=== PATIENT | male | born 1970 | race Caucasian/White ===

== ENCOUNTER 2017-02-10 13:59 | Inpatient (IN) | payer OTHER ==
[~2017-02-10] VITALS: Ht 175.3 cm; Wt 66.5 kg
[~2017-02-10 13:59] MED LIST: HYDR-906 PO
[2017-02-10] MEDS ORDERED: FAMOTIDINE 20 MG TAB PO STA (14:24)
[2017-02-10] MEDS ORDERED: SOD CHLORIDE 0.9% 1,000 ML IV STA ×2 (14:24→15:59)
[2017-02-10] MEDS: ONDANSETRON 4 MG INJ IV STA ×2 (14:58→15:07)
[2017-02-10] MEDS ORDERED: morphine 4 MG/ML VIAL IV STA (15:12)
[2017-02-10 15:14] LABS: ADD SCAN DIFF NO
[2017-02-10 15:16] LABS: BASOPHIL # 0.1 10^3/ul (0.0-0.1); BASOPHILS % 0.6 % (0.0-2.0); EOSINOPHILS # 0.1 10^3/ul (0.0-0.5); EOSINOPHILS % 0.5 % (0.0-7.0); HEMATOCRIT 43.7 % (42.0-52.0); HEMOGLOBIN 15.3 g/dl (14.0-18.0); LYMPHOCYTES # 1.3 10^3/ul (0.8-2.9); LYMPHOCYTES % 12.4 % (15.0-51.0); MEAN CORPUSCULAR VOLUME 94.2 fl (82.0-101.0); MEAN PLATELET VOLUME 10.6 fl (7.4-10.4); MONOCYTE # 0.7 10^3/ul (0.3-0.9); MONOCYTES % 6.2 % (0.0-11.0); NEUTROPHIL # 8.5 10^3/ul (1.6-7.5); NEUTROPHILS % 80.1 % (39.0-77.0); PLATELET COUNT 258 10^3/UL (140-415); RED BLOOD COUNT 4.64 10^6/ul (4.70-6.10); RED CELL DISTRIBUTION WIDTH 12.2 % (11.5-14.5); WHITE BLOOD COUNT 10.6 10^3/ul (4.8-10.8)
[2017-02-10 15:37] LABS: ALBUMIN 5.5 g/dl (3.3-4.9); ALBUMIN/GLOBULIN RATIO 1.34; CALCIUM 10.5 mg/dl (8.4-10.2); CREATININE 0.91 mg/dl (0.61-1.24); TOTAL PROTEIN 9.6 g/dl (6.1-8.1)
[2017-02-10 15:39] LABS: ADD UMIC YES; UR ASCORBIC ACID 40 mg/dL (NEGATIVE); UR BILIRUBIN (Dip) NEGATIVE (NEGATIVE); UR BLOOD (Dip) NEGATIVE (NEGATIVE); UR CLARITY SLIGHTLY CLOUDY (CLEAR); UR COLOR AMBER (YELLOW); UR GLUCOSE (Dip) NEGATIVE (NEGATIVE); UR KETONES (Dip) TRACE mg/dL (NEGATIVE); UR LEUKOCYTE ESTERASE (Dip) NEGATIVE Leu/ul (NEGATIVE); UR MUCUS MANY /HPF (NONE SEEN); UR NITRITE (Dip) NEGATIVE (NEGATIVE); UR RBC 0 /HPF (0-5); UR SPECIFIC GRAVITY (Dip) 1.028 (1.003-1.030); UR TOTAL PROTEIN (Dip) 2+ mg/dl (NEGATIVE); UR UROBILINOGEN (Dip) NEGATIVE (NEGATIVE)
--- NOTE | 2017-02-10 15:42 | ERD ---
ER Documentation Chief Complaint Date/Time DATE: 02/10/17 TIME: 15:35 Chief Complaint abdominal pain since yesterday HPI 46 y/o male presents with 8/10, sharp generalized abdominal pain radiating to his back beginning yesterday morning. He states he has a history of pancreatitis and that this pain feels similar to his previous episode. He had 10 drinks the day before the pain began and states he drinks about 10 drinks a day regularly for the past 15 years. He denies any nausea, vomiting, diarrhea, constipation, dysuria, hematuria, fever, SOB or CP. ROS All systems reviewed and are negative except as per history of present illness. Medications Home Meds Active Scripts Hydrocodone/Acetaminophen (Maribel 5-325 Tablet) 1 Each Tablet, 1 TAB PO Q6H Y for PAIN, #15 TAB Prov:PANCHO HICKMAN PA-C 05/07/16 Allergies Allergies: Coded Allergies: No Known Allergy (Unverified , 02/10/17) PMhx/Soc Medical and Surgical Hx: pt denies Medical Hx, pt denies Surgical Hx History of Surgery: No Anesthesia Reaction: No Hx Neurological Disorder: No Hx Respiratory Disorders: No Hx Cardiac Disorders: No Hx Psychiatric Problems: No Hx Miscellaneous Medical Probl: No Hx Alcohol Use: Yes (socially) Hx Substance Use: No Hx Tobacco Use: No Smoking Status: Never smoker Physical Exam Vitals Vital Signs Date Time Temp Pulse Resp B/P Pulse Ox O2 Delivery O2 Flow Rate FiO2 02/10/17 14:03 98.8 92 18 132/87 98 Physical Exam GENERAL: well-developed/well-nourished, in no apparent distress, non-toxic appearing HENT: NC/AT, moist mucous membranes EYES: Conjunctiva normal NECK: Supple, no lymphadenopathy PULM: CTA bilaterally, no rales, rhonchi, or wheezing heard CV: Normal S1S2, RRR, good capillary refill GI: Soft, non-distended, tender to palpation in all quadrants Normal bowel sounds, no masses or organomegaly felt on exam No gross peritonitis, no bruits Negative Rovsing, negative Howard, negative McBurney's point, Negative CVAT BACK: No masses EXT: No clubbing, cyanosis, or edema NEURO: Alert and Orientated SKIN: Intact, normal turgor PSYCH: Normal mood and mentation Result Diagram: 02/10/17 1455 02/10/17 1455 Results 24 hrs Laboratory Tests Test 02/10/17 14:55 White Blood Count 10.610^3/ul Red Blood Count 4.6410^6/ul Hemoglobin 15.3g/dl Hematocrit 43.7% Mean Corpuscular Volume 94.2fl Mean Corpuscular Hemoglobin 33.0pg Mean Corpuscular Hemoglobin Concent 35.0g/dl Red Cell Distribution Width 12.2% Platelet Count 64332^3/UL Mean Platelet Volume 10.6fl Neutrophils % 80.1% Lymphocytes % 12.4% Monocytes % 6.2% Eosinophils % 0.5% Basophils % 0.6% Nucleated Red Blood Cells % 0.0/100WBC Neutrophils # 8.510^3/ul Lymphocytes # 1.310^3/ul Monocytes # 0.710^3/ul Eosinophils # 0.110^3/ul Basophils # 0.110^3/ul Nucleated Red Blood Cells # 0.010^3/ul Urine Color JACINDA Urine Clarity SLIGHTLY CLOUDY Urine pH 5.0 Urine Specific [place] 1.028 Urine Ketones TRACEmg/dL Urine Nitrite NEGATIVEmg/dL Urine Bilirubin NEGATIVEmg/dL Urine Urobilinogen NEGATIVEmg/dL Urine Leukocyte Esterase NEGATIVELeu/ul Urine Microscopic RBC 0/HPF Urine Microscopic WBC 2/HPF Urine Mucus MANY/HPF Urine Hemoglobin NEGATIVEmg/dL Urine Glucose NEGATIVEmg/dL Urine Total Protein 2+mg/dl Sodium Level 137mmol/L Potassium Level 4.0mmol/L Chloride Level 101mmol/L Carbon Dioxide Level 23mmol/L Anion Gap 17 Blood Urea Nitrogen 20mg/dl Creatinine 0.91mg/dl Glucose Level 127mg/dl Calcium Level 10.5mg/dl Total Bilirubin 1.0mg/dl Direct Bilirubin 0.00mg/dl Indirect Bilirubin 1.0mg/dl Aspartate Amino Transf (AST/SGOT) 52IU/L Alanine Aminotransferase (ALT/SGPT) 51IU/L Alkaline Phosphatase 67IU/L Total Protein 9.6g/dl Albumin 5.5g/dl Globulin 4.10g/dl Albumin/Globulin Ratio 1.34 Lipase 1736U/L Current Medications Medications (Trade) Dose Ordered Sig/Teresa Route PRN Reason Start Time Stop Time Status Last Admin Dose Admin Sodium Chloride (NS) 1,000 ml @ 1,000 mls/hr Q1H STAT IV 02/10/17 14:24 7/11/17 15:23 DC 02/10/17 14:58 Ondansetron HCl (Zofran Inj) 4 mg ONCE STAT IV 02/10/17 14:24 02/10/17 14:26 DC Famotidine (Pepcid) 20 mg ONCE STAT PO 02/10/17 14:24 02/10/17 14:26 DC 02/10/17 14:58 Morphine Sulfate 4 mg 4 mg ONCE STAT IV 02/10/17 15:12 02/10/17 15:13 DC 02/10/17 15:22 Sodium Chloride (NS) 1,000 ml @ 1,000 mls/hr Q1H STAT IV 02/10/17 15:59 02/10/17 16:58 DC 02/10/17 16:15 Ketorolac Tromethamine (Toradol) 30 mg ONCE STAT IV 02/10/17 16:52 02/10/17 16:53 DC 02/10/17 17:05 Procedures/MDM This is a 46-year-old male with history of alcoholic pancreatitis presenting to the emergency department complaining of generalized abdominal pain since Thursday which is likely due to alcoholic pancreatitis. Patient will need to get admitted for further evaluation and management. There was no evidence of sepsis , biliary obstruction, cholecystitis, cholangitis, appendicitis. IV access was established,Lab work was drawn. CBC did not show any evidence of leukocytosis or anemia. CMP did not show any evidence of renal, liver, or electrolyte abnormalities. Lipase ~1700. UA did not show any evidence of hemoglobin or urinary tract infection. Patient was given morphine, Toradol and 2 L of IV fluids. I have contacted my supervising physician Dr. Frost who consult to the hospitalist, patient will be transferred to [facility] for further evaluation and imaging. He stable to be transferred Gallbladder US: Nonspecific heterogeneity of the pancreatic head. Finding is compatible with pancreatitis in the appropriate clinical scenario. Distal body and tail of the pancreas not well visualized. If characterization of this structure is needed repeat exam is recommended. CT abd and pelvis without contrast: 1. Acute pancreatitis. No evidence of abscess or pseudocyst. 2. Otherwise unremarkable noncontrast CT scan of the abdomen and pelvis. Departure Diagnosis: Primary Impression: Pancreatitis Condition: Serious MASSIEL DALEY PA-C Feb 10, 2017 15:42
--- NOTE | 2017-02-10 16:21 | RADRPT ---
PROCEDURE: CT Abdomen and Pelvis without contrast. CLINICAL INDICATION: Abdominal and pelvic pain. TECHNIQUE: CT scan of the abdomen and pelvis without contrast was performed. Coronal and sagittal reformatted images were obtained from the axial source images. Images were reviewed on a [employer] PACS workstation. Total exam DLP is 427.48 mGy-cm. CTDIvol is 6.97 mGy. One or more of the [facility] dose reduction techniques were used: Automated exposure control, adjustment of the mA and/or kV according to patient size, use of iterative reconstruction technique. COMPARISON: None. FINDINGS: The lung bases are normal. There is no pleural effusion. The liver is normal in size and attenuation. There is no focal hepatic lesion. The gallbladder and bile ducts are normal. The spleen is normal in size. There is no focal splenic lesion. Both adrenals are normal with no enlargement or mass. The head of the pancreas is enlarged and there is surrounding mesenteric edema consistent with pancr eatitis. There is no pancreatic mass or fluid collection. There is no renal mass or hydronephrosis. There is no renal calculus or ureteral calculus. The abdominal aorta is not dilated. There is no retroperitoneal lymphadenopathy or mass. There is no pelvic lymphadenopathy or mass. The bladder and distal ureters are normal. The periappendiceal region is unremarkable with no evidence of appendicitis. The bowel and mesentery are otherwise normal. There is no free fluid or free gas. The osseous structures are unremarkable with no fracture or lytic lesion. IMPRESSION: 1. Acute pancreatitis. No evidence of abscess or pseudocyst. 2. Otherwise unremarkable noncontrast CT scan of the abdomen and pelvis. RPTAT: QQ .Miguel Angel Burnham MD, MD Date Time Electronically viewed and signed by .Miguel Angel Burnham MD, MD on 02/10/2017 16:21 .R/
--- NOTE | 2017-02-10 16:47 | RADRPT ---
PROCEDURE: US Abdomen Limited . CLINICAL INDICATION: Abdominal pain, pancreatitis. TECHNIQUE: Multiple real-time images were acquired of the patient's right upper quadrant abdomen u tilizing a high resolution transducer. COMPARISON: CT February 10, 2017 FINDINGS: The liver measures 16.5 cm and demonstrates a normal echogenicity. The gallbladder is filled with a moderate amount of bile. No shadowing echogenic stones or masses are seen in the gallbladder. The gallbladder wall is not thickened at 1.8 mm. No pericholecystic fluid is noted. The common bile duct measures 4.7 mm in diameter. Heterogeneity of the visualized pancreatic head is identified. The d istal body and tail of the pancreas is not well visualized. Antegrade flow is seen in the portal vein. Right kidney measures 10.5 cm. Right kidney demonstrates a normal echogenicity. No hydronephrosis, masses or stones are noted. IMPRESSION: Nonspecific heterogeneity of the pancreatic head. Finding is compatible with pancreatitis in the ap propriate clinical scenario. Distal body and tail of the pancreas not well visualized. If characterization of this structure is n eeded repeat exam is recommended. RPTAT: AA .Barrie Haddad MD, MD Date Time Electronically viewed and signed by .Barrie Haddad MD, MD on 02/10/2017 16:47 .P/
[2017-02-10] MEDS ORDERED: KETOROLAC 30 MG INJ IV STA (16:52)
[2017-02-10] MEDS ORDERED: DOCUSATE SODIUM 100 MG CAP PO PRN (18:30)
[2017-02-10] MEDS ORDERED: ONDANSETRON 4 MG TAB PO PRN (18:30)
[2017-02-10] MEDS ORDERED: METOCLOPRAMIDE 10 MG INJ IV PRN (18:30)
[2017-02-10] MEDS ORDERED: MAGNESIUM HYDROXIDE 30ML CUP PO PRN (18:30)
[2017-02-10] MEDS ORDERED: NACL 0.9% 3 ML SYG IV SCH (18:30)
[2017-02-10] MEDS ORDERED: ONDANSETRON 4 MG INJ IV PRN (18:30)
[2017-02-10] MEDS ORDERED: ACETAMINOPHEN 325 MG TAB PO PRN (18:30)
--- NOTE | 2017-02-10 18:42 | HP ---
Date/Time of Note Date/Time of Note DATE: 02/10/17 TIME: 18:33 Assessment/Plan VTE Prophylaxis VTE Prophylaxis Intervention: SCD's Assessment/Plan Assessment/Plan 46 yo M with pmhx EtOH abuse admitted for abd pain. Labs and imaging consistent with acute pancreatitis, suspect 2/2 EtOH consumption. No biliary pathology/ gallstones seen on imaging. #acute pancreatitis: IVFs, NPO (pancreas rest) check lipids and a1c EtOH cessation advised #proteinuria: etio unclear. ?starvation? unclear too if transient or persistent urine p/c to quantify may need nephrology f/u at discharge v repeat with PCP #anion gap: suspect from EtOH v starvation IVFs, cont to monitor #elevated AST: suspect 2/2 EtOH repeat in AM, consider US FEN: IVFs DVT prophx HPI/ROS Admit Date/Time Admit Date/Time Hx of Present Illness German language line used to facilitate communication 46 yo M with pmhx EtOH abuse previous admission for acute pancreatitis presents with 30 hours of abd pain. Denies any nausea, vomiting, fevers or chills. Typically drinks 3-4 beers daily, last drink was 2 days ago. Denies h/o EtOH withdrawal symptoms or seizures 10pROS neg as per HPI PMHx: as per HPI Home meds: none Soc Hx: non smoker, EtOH as above, lives in the community PMH/Family/Social Social History Smoking Status: Never smoker Exam/Review of Systems Vital Signs Vitals Vital Signs Date Time Temp Pulse Resp B/P Pulse Ox O2 Delivery O2 Flow Rate FiO2 02/10/17 14:03 98.8 92 18 132/87 98 Exam Exam nad, wearing street clothes EOMI MMM no mrg lungs clear abd soft no le edema no rashes labs reviewed, lipase 1700 CT results reviewed IMPRESSION: 1. Acute pancreatitis. No evidence of abscess or pseudocyst. gallbladder US IMPRESSION: Nonspecific heterogeneity of the pancreatic head. Finding is compatible with pancreatitis in the appropriate clinical scenario. Distal body and tail of the pancreas not well visualized. If characterization of this structure is needed repeat exam is recommended. labs also notable for AG, AST elevation and sig proteinuria Labs Result Diagram: 02/10/17 1455 02/10/17 1455 Medications Medications Current Medications Ondansetron HCl (Zofran Tab) 4 mg Q6H PRN PO NAUSEA AND/OR VOMITING; Start 06/19 at 18:30 Ondansetron HCl (Zofran Inj) 4 mg Q6H PRN IV NAUSEA AND/OR VOMITING; Start 06/19 at 18:30 Metoclopramide HCl (Reglan) 10 mg Q6H PRN IV NAUSEA AND/OR VOMITING; Start 06/19 at 18:30 Acetaminophen (Tylenol Tab) 650 mg Q6H PRN PO PAIN LEVEL 1-3 OR FEVER; Start at 18:30 Docusate Sodium (Colace) 100 mg Q12H PRN PO CONSTIPATION; Start 02/10/17 at 18: 30 Magnesium Hydroxide (Milk Of Mag) 30 ml DAILY PRN PO CONSTIPATION; Start at 18:30 Enoxaparin Sodium 40 mg 40 mg DAILY SC ; Start 02/11/17 at 09:00 Sodium Chloride (NS) 1,000 ml @ 125 mls/hr Q8H IV ; Start 02/10/17 at 18:30 HILLARY REYEZ MD Feb 10, 2017 18:42
[2017-02-10] MEDS: SOD CHLORIDE 0.9% 1,000 ML IV SCH (19:41)
--- NOTE | 2017-02-10 19:48 | EN ---
Date/Time of Note Date/Time of Note DATE: 02/10/17 TIME: 19:36 ER Progress Note Patient brought this patient to my attention who had CT and ultrasound evidence of pancreatitis as well as a mildly elevated lipase. He was hydrated with 2 L of normal saline to start with and receive full her IV hydration on the floor. I spoke with Karen Greer who will be admitting the patient to [facility] for further treatment. ANGELINA SORIANO DO Feb 10, 2017 19:46
[2017-02-10 20:00] VITALS: TEMP 97.9
[2017-02-10] MEDS ORDERED: SOD CHLORIDE 0.9% 1,000 ML IV ONE (20:00)
[2017-02-10 20:18] LABS: CHOL/HDL RATIO 2.4 RATIO
[2017-02-10 21:15] VITALS: BP 140/87; PULSE 78; RESP 17; Ht 175.3 cm; Wt 66.5 kg
[2017-02-10] MEDS: HYDROmorphONE 1 MG/ML SYG IV PRN (23:00)
[2017-02-11 02:00] VITALS: BP 122/78; RESP 19
[2017-02-11] MEDS: HYDROmorphONE 1 MG/ML SYG IV PRN ×4 (03:10→15:49)
[2017-02-11] MEDS: SOD CHLORIDE 0.9% 1,000 ML IV SCH ×3 (04:13→18:56)
[2017-02-11 06:19] LABS: ALBUMIN 3.9 g/dl (3.3-4.9); BILIRUBIN,INDIRECT 0.8 mg/dl (0-1.1); BILIRUBIN,TOTAL 0.8 mg/dl (0.2-1.3)
[2017-02-11 07:34] VITALS: BP 127/88; RESP 20
[2017-02-11] MEDS: ENOXAPARIN 40 MG/0.4 ML SYG SC SCH ×2 (09:00→09:19)
--- NOTE | 2017-02-11 10:56 | PN ---
Date/Time of Note Date/Time of Note DATE: 02/11/17 TIME: 10:55 Assessment/Plan VTE Prophylaxis VTE Prophylaxis Intervention: heparin Lines/Catheters IV [facility] Peripheral IV Urinary Cath still in place: No Assessment/Plan Assessment/Plan 46 yo M with pmhx EtOH abuse admitted for abd pain. Labs and imaging consistent with acute pancreatitis, suspect 2/2 EtOH consumption. No biliary pathology/ gallstones seen on imaging. #acute pancreatitis: IVFs, NPO (pancreas rest) TGs not markedly elevated EtOH cessation advised at time of admission #proteinuria: etio unclear. ?starvation? unclear too if transient or persistent urine p/c non nephrotic range will recheck tomorrow #anion gap: suspect from EtOH v starvation IVFs, cont to monitor #elevated AST: suspect 2/2 EtOH. RESOLVED FEN: IVFs DVT prophx Subjective 24 Hr Interval Summary Free Text/Dictation Stomach pain a little better but not yet ready to eat Exam/Review of Systems Vital Signs Vitals Vital Signs Date Time Temp Pulse Resp B/P Pulse Ox O2 Delivery O2 Flow Rate FiO2 02/11/17 07:34 98.0 64 20 127/88 97 02/10/17 21:15 Room Air Intake and Output 02/10/17 02/10/17 02/11/17 15:00 23:00 07:00 Intake Total 1125 ml Balance 1125 ml Exam nad no mrg lungs clear abd soft no rashes EtOH level zero Results Result Diagram: 02/10/17 1455 02/10/17 1455 Results 24 hrs Laboratory Tests Test 02/10/17 14:55 02/10/17 19:36 02/11/17 05:10 White Blood Count 10.6 # Red Blood Count 4.64 L Hemoglobin 15.3 Hematocrit 43.7 Mean Corpuscular Volume 94.2 Mean Corpuscular Hemoglobin 33.0 Mean Corpuscular Hemoglobin Concent 35.0 Red Cell Distribution Width 12.2 Platelet Count 258 Mean Platelet Volume 10.6 #H Neutrophils % 80.1 H Lymphocytes % 12.4 L Monocytes % 6.2 Eosinophils % 0.5 Basophils % 0.6 Nucleated Red Blood Cells % 0.0 Neutrophils # 8.5 H Lymphocytes # 1.3 Monocytes # 0.7 Eosinophils # 0.1 Basophils # 0.1 Nucleated Red Blood Cells # 0.0 Urine Color JACINDA Urine Clarity SLIGHTLY CLOUDY A Urine pH 5.0 Urine Specific [place] 1.028 Urine Ketones TRACE A Urine Nitrite NEGATIVE Urine Bilirubin NEGATIVE Urine Urobilinogen NEGATIVE Urine Leukocyte Esterase NEGATIVE Urine Microscopic RBC 0 Urine Microscopic WBC 2 Urine Mucus MANY A Urine Hemoglobin NEGATIVE Urine Glucose NEGATIVE Urine Total Protein 2+ H 18.0 H Sodium Level 137 Potassium Level 4.0 Chloride Level 101 Carbon Dioxide Level 23 Anion Gap 17 H Blood Urea Nitrogen 20 Creatinine 0.91 Glucose Level 127 Hemoglobin A1c 5.7 Calcium Level 10.5 H Total Bilirubin 1.0 0.8 Direct Bilirubin 0.00 0.00 Indirect Bilirubin 1.0 0.8 Aspartate Amino Transf (AST/SGOT) 52 H 28 Alanine Aminotransferase (ALT/SGPT) 51 35 Alkaline Phosphatase 67 36 L Total Protein 9.6 H 6.0 #L Albumin 5.5 H 3.9 # Globulin 4.10 H Albumin/Globulin Ratio 1.34 Triglycerides Level 275 H Cholesterol Level 205 H LDL Cholesterol, Calculated 65 HDL Cholesterol 85 H Cholesterol/HDL Ratio 2.4 Lipase 1736 H Ethyl Alcohol Level < 10.0 Urine Random Creatinine 222.07 Medications Medications Current Medications Ondansetron HCl (Zofran Tab) 4 mg Q6H PRN PO NAUSEA AND/OR VOMITING; Start 06/19 at 18:30 Ondansetron HCl (Zofran Inj) 4 mg Q6H PRN IV NAUSEA AND/OR VOMITING; Start 06/19 at 18:30 Metoclopramide HCl (Reglan) 10 mg Q6H PRN IV NAUSEA AND/OR VOMITING; Start 06/19 at 18:30 Acetaminophen (Tylenol Tab) 650 mg Q6H PRN PO PAIN LEVEL 1-3 OR FEVER; Start at 18:30 Docusate Sodium (Colace) 100 mg Q12H PRN PO CONSTIPATION; Start 02/10/17 at 18: 30 Magnesium Hydroxide (Milk Of Mag) 30 ml DAILY PRN PO CONSTIPATION; Start at 18:30 Enoxaparin Sodium 40 mg 40 mg DAILY SC Last administered on 02/11/17 09:19; Admin Dose 40 MG; Start 02/11/17 at 09:00 Sodium Chloride (NS) 1,000 ml @ 125 mls/hr Q8H IV Last administered on 04:13; Admin Dose 125 MLS/HR; Start 02/10/17 at 18:30 Hydromorphone HCl (Dilaudid) 0.5 mg Q4H PRN IV PAIN Last administered on t 07:25; Admin Dose 0.5 MG; Start 02/10/17 at 22:00 Procedures Procedures urine p/c ratio .08 lipids reviewed a1c in pre DM range HILLARY REYEZ MD Feb 11, 2017 10:56
[2017-02-11 15:07] LABS: CALCIUM 8.3 mg/dl (8.4-10.2); CREATININE 0.67 mg/dl (0.61-1.24); POTASSIUM 3.5 mmol/L (3.5-5.1)
[2017-02-11 15:20] VITALS: BP 121/74; RESP 20
[2017-02-11 20:30] VITALS: BP 128/69; PULSE 75; RESP 18
[2017-02-12] MEDS: HYDROmorphONE 1 MG/ML SYG IV PRN ×2 (01:35→06:43)
[2017-02-12] MEDS: SOD CHLORIDE 0.9% 1,000 ML IV SCH ×4 (02:44→19:27)
[2017-02-12 06:35] LABS: CALCIUM 8.4 mg/dl (8.4-10.2); CREATININE 0.71 mg/dl (0.61-1.24); POTASSIUM 3.6 mmol/L (3.5-5.1)
[2017-02-12] MEDS: ENOXAPARIN 40 MG/0.4 ML SYG SC SCH (08:35)
[2017-02-12 09:05] VITALS: BP 122/73; RESP 18
--- NOTE | 2017-02-12 12:27 | PN ---
Date/Time of Note Date/Time of Note DATE: 02/12/17 TIME: 12:26 Assessment/Plan VTE Prophylaxis VTE Prophylaxis Intervention: SCD's Lines/Catheters IV [facility]): Peripheral IV Urinary Cath still in place: No Assessment/Plan Assessment/Plan 46 yo M with pmhx EtOH abuse admitted for abd pain. Labs and imaging consistent with acute pancreatitis, suspect 2/2 EtOH consumption. No biliary pathology/ gallstones seen on imaging. #acute pancreatitis: IVFs, advance diet to general TGs not markedly elevated EtOH cessation advised at time of admission #proteinuria: etio unclear. ?starvation? unclear too if transient or persistent urine p/c non nephrotic range recheck today #anion gap: suspect from EtOH v starvation: RESOLVED IVFs, cont to monitor #elevated AST: suspect 2/2 EtOH. RESOLVED #preDM: a1c 5.7. f/u with PCP as outpatient FEN: IVFs, regular diet DVT prophx Subjective 24 Hr Interval Summary Free Text/Dictation Stomach pain has resolved. Wants to try eating Exam/Review of Systems Vital Signs Vitals Vital Signs Date Time Temp Pulse Resp B/P Pulse Ox O2 Delivery O2 Flow Rate FiO2 02/12/17 09:05 97.7 63 18 122/73 98 02/11/17 20:30 Room Air Intake and Output 02/11/17 02/11/17 02/12/17 14:59 22:59 06:59 Intake Total 750 ml 750 ml 855 ml Balance 750 ml 750 ml 855 ml Exam nad, sitting in chair wearing street clothes no mrg lungs clear abd soft no rashes Results Result Diagram: 02/10/17 1455 02/12/17 0509 Results 24 hrs Laboratory Tests Test 02/11/17 14:40 02/12/17 05:09 Sodium Level 132 L 134 L Potassium Level 3.5 3.6 Chloride Level 106 103 Carbon Dioxide Level 22 23 Anion Gap 8 # 12 Blood Urea Nitrogen 13 8 Creatinine 0.67 0.71 Glucose Level 91 66 #L Calcium Level 8.3 L 8.4 Medications Medications Current Medications Ondansetron HCl (Zofran Tab) 4 mg Q6H PRN PO NAUSEA AND/OR VOMITING; Start 06/19 at 18:30 Ondansetron HCl (Zofran Inj) 4 mg Q6H PRN IV NAUSEA AND/OR VOMITING; Start 06/19 at 18:30 Metoclopramide HCl (Reglan) 10 mg Q6H PRN IV NAUSEA AND/OR VOMITING; Start 06/19 at 18:30 Acetaminophen (Tylenol Tab) 650 mg Q6H PRN PO PAIN LEVEL 1-3 OR FEVER; Start at 18:30 Docusate Sodium (Colace) 100 mg Q12H PRN PO CONSTIPATION; Start 02/10/17 at 18: 30 Magnesium Hydroxide (Milk Of Mag) 30 ml DAILY PRN PO CONSTIPATION; Start at 18:30 Enoxaparin Sodium 40 mg 40 mg DAILY SC Last administered on 02/12/17 08:35; Admin Dose 40 MG; Start 02/11/17 at 09:00 Sodium Chloride (NS) 1,000 ml @ 125 mls/hr Q8H IV Last administered on 11:19; Admin Dose 125 MLS/HR; Start 02/10/17 at 18:30 Hydromorphone HCl (Dilaudid) 0.5 mg Q4H PRN IV PAIN Last administered on 06:43; Admin Dose 0.5 MG; Start 02/10/17 at 22:00 HILLARY REYEZ MD Feb 12, 2017 12:26
[2017-02-12 14:34] VITALS: BP 131/65; RESP 20
[2017-02-12 18:42] LABS: ADD UMIC YES; UR ASCORBIC ACID NEGATIVE (NEGATIVE); UR BILIRUBIN (Dip) NEGATIVE (NEGATIVE); UR BLOOD (Dip) 1+ mg/dL (NEGATIVE); UR CLARITY CLEAR (CLEAR); UR COLOR YELLOW (YELLOW); UR GLUCOSE (Dip) NEGATIVE (NEGATIVE); UR KETONES (Dip) 2+ mg/dL (NEGATIVE); UR LEUKOCYTE ESTERASE (Dip) NEGATIVE Leu/ul (NEGATIVE); UR NITRITE (Dip) NEGATIVE (NEGATIVE); UR RBC 0 /HPF (0-5); UR SPECIFIC GRAVITY (Dip) 1.015 (1.003-1.030); UR TOTAL PROTEIN (Dip) NEGATIVE (NEGATIVE); UR UROBILINOGEN (Dip) NEGATIVE (NEGATIVE)
[2017-02-12 20:44] VITALS: BP 114/66; RESP 19
[2017-02-13] MEDS: HYDROmorphONE 1 MG/ML SYG IV PRN ×4 (00:45→21:06)
[2017-02-13 02:00] VITALS: BP 139/87; RESP 20
[2017-02-13] MEDS: SOD CHLORIDE 0.9% 1,000 ML IV SCH ×3 (02:55→21:06)
[2017-02-13 03:57] VITALS: PULSE 68
[2017-02-13 07:20] VITALS: BP 140/83; RESP 18
[2017-02-13 07:41] VITALS: BP 146/96; PULSE 51; RESP 16
[2017-02-13] MEDS: ENOXAPARIN 40 MG/0.4 ML SYG SC SCH (08:07)
--- NOTE | 2017-02-13 11:25 | PN ---
Date/Time of Note Date/Time of Note DATE: 02/13/17 TIME: 11:24 Assessment/Plan VTE Prophylaxis VTE Prophylaxis Intervention: SCD's Lines/Catheters IV Catheter Type (from [facility]): Peripheral IV Urinary Cath still in place: No Assessment/Plan Assessment/Plan 46 yo M with pmhx EtOH abuse admitted for abd pain. Labs and imaging consistent with acute pancreatitis, suspect 2/2 EtOH consumption. No biliary pathology/ gallstones seen on imaging. #acute pancreatitis: IVFs, advance diet to general TGs not markedly elevated EtOH cessation advised at time of admission #proteinuria: RESOLVED #anion gap: suspect from EtOH v starvation: RESOLVED #elevated AST: suspect 2/2 EtOH. RESOLVED #preDM: a1c 5.7. f/u with PCP as outpatient FEN: IVFs, regular diet DVT prophx Subjective 24 Hr Interval Summary Free Text/Dictation Tried eating yesterday but developed abd pain. Exam/Review of Systems Vital Signs Vitals Vital Signs Date Time Temp Pulse Resp B/P Pulse Ox O2 Delivery O2 Flow Rate FiO2 02/13/17 07:41 97.9 51 16 146/96 98 Room Air Intake and Output 02/12/17 02/12/17 02/13/17 15:00 23:00 07:00 Intake Total 2020 ml 1610 ml Balance 2020 ml 1610 ml Exam nad, laying in bed listening to music no mrg lungs clear abd soft norashes no protein on repeat UA Results Result Diagram: 02/10/17 1455 02/12/17 0509 Results 24 hrs Laboratory Tests Test 02/12/17 14:00 Urine Color YELLOW Urine Clarity CLEAR Urine pH 5.0 Urine Specific [place] 1.015 Urine Ketones 2+ H Urine Nitrite NEGATIVE Urine Bilirubin NEGATIVE Urine Urobilinogen NEGATIVE Urine Leukocyte Esterase NEGATIVE Urine Microscopic RBC 0 Urine Microscopic WBC 0 Urine Hemoglobin 1+ H Urine Glucose NEGATIVE Urine Total Protein NEGATIVE Medications Medications Current Medications Ondansetron HCl (Zofran Tab) 4 mg Q6H PRN PO NAUSEA AND/OR VOMITING; Start 06/19 at 18:30 Ondansetron HCl (Zofran Inj) 4 mg Q6H PRN IV NAUSEA AND/OR VOMITING; Start 06/19 at 18:30 Metoclopramide HCl (Reglan) 10 mg Q6H PRN IV NAUSEA AND/OR VOMITING; Start 06/19 at 18:30 Acetaminophen (Tylenol Tab) 650 mg Q6H PRN PO PAIN LEVEL 1-3 OR FEVER; Start at 18:30 Docusate Sodium (Colace) 100 mg Q12H PRN PO CONSTIPATION; Start 02/10/17 at 18: 30 Magnesium Hydroxide (Milk Of Mag) 30 ml DAILY PRN PO CONSTIPATION; Start at 18:30 Enoxaparin Sodium 40 mg 40 mg DAILY SC Last administered on 02/13/17 08:07; Admin Dose 40 MG; Start 02/11/17 at 09:00 Sodium Chloride (NS) 1,000 ml @ 125 mls/hr Q8H IV Last administered on 02:55; Admin Dose 125 MLS/HR; Start 02/10/17 at 18:30 Hydromorphone HCl (Dilaudid) 0.5 mg Q4H PRN IV PAIN Last administered on 09:03; Admin Dose 0.5 MG; Start 02/10/17 at 22:00 HILLARY REYEZ MD Feb 13, 2017 11:25
[2017-02-13 14:09] VITALS: BP 135/82; PULSE 66; RESP 16
[2017-02-13 20:07] VITALS: BP 129/78; RESP 18
[2017-02-14] MEDS: HYDROmorphONE 1 MG/ML SYG IV PRN ×2 (01:37→06:00)
[2017-02-14 02:10] VITALS: BP 142/83; RESP 17
[2017-02-14] MEDS: SOD CHLORIDE 0.9% 1,000 ML IV SCH ×2 (06:04→17:35)
[2017-02-14 08:10] VITALS: BP 151/83; RESP 16
[2017-02-14] MEDS: ENOXAPARIN 40 MG/0.4 ML SYG SC SCH (08:49)
[2017-02-14 09:53] VITALS: BP 125/80; PULSE 60
--- NOTE | 2017-02-14 13:04 | PN ---
Date/Time of Note Date/Time of Note DATE: 02/14/17 TIME: 13:03 Assessment/Plan VTE Prophylaxis VTE Prophylaxis Intervention: SCD's Lines/Catheters IV Catheter Type (from Nrs): Peripheral IV Urinary Cath still in place: No Assessment/Plan Assessment/Plan 46 yo M with pmhx EtOH abuse admitted for abd pain. Labs and imaging consistent with acute pancreatitis, suspect 2/2 EtOH consumption. No biliary pathology/ gallstones seen on imaging. #acute pancreatitis: IVFs, advanced diet to general TGs not markedly elevated EtOH cessation advised at time of admission #proteinuria: RESOLVED #anion gap: suspect from EtOH v starvation: RESOLVED #elevated AST: suspect 2/2 EtOH. RESOLVED #preDM: a1c 5.7. f/u with PCP as outpatient FEN: IVFs, regular diet DVT prophx Subjective 24 Hr Interval Summary Free Text/Dictation Still doesn't feel ready to go Exam/Review of Systems Vital Signs Vitals Vital Signs Date Time Temp Pulse Resp B/P Pulse Ox O2 Delivery O2 Flow Rate FiO2 02/14/17 09:53 60 125/80 02/14/17 08:10 97.7 16 98 02/13/17 14:09 Room Air Intake and Output 02/13/17 02/13/17 02/14/17 15:00 23:00 07:00 Intake Total 800 ml 1720 ml 1550 ml Output Total 1350 ml Balance 800 ml 1720 ml 200 ml Exam nad no mrg lungs clear abd soft no rashes Results Result Diagram: 02/10/17 1455 02/12/17 0509 Medications Medications Current Medications Ondansetron HCl (Zofran Tab) 4 mg Q6H PRN PO NAUSEA AND/OR VOMITING; Start 06/19 at 18:30 Ondansetron HCl (Zofran Inj) 4 mg Q6H PRN IV NAUSEA AND/OR VOMITING; Start 06/19 at 18:30 Metoclopramide HCl (Reglan) 10 mg Q6H PRN IV NAUSEA AND/OR VOMITING; Start 06/19 at 18:30 Acetaminophen (Tylenol Tab) 650 mg Q6H PRN PO PAIN LEVEL 1-3 OR FEVER; Start at 18:30 Docusate Sodium (Colace) 100 mg Q12H PRN PO CONSTIPATION; Start 02/10/17 at 18: 30 Magnesium Hydroxide (Milk Of Mag) 30 ml DAILY PRN PO CONSTIPATION; Start at 18:30 Enoxaparin Sodium 40 mg 40 mg DAILY SC Last administered on 02/14/17 08:49; Admin Dose 40 MG; Start 02/11/17 at 09:00 Sodium Chloride (NS) 1,000 ml @ 125 mls/hr Q8H IV Last administered on 06:04; Admin Dose 125 MLS/HR; Start 02/10/17 at 18:30 Hydromorphone HCl (Dilaudid) 0.5 mg Q4H PRN IV PAIN Last administered on 06:00; Admin Dose 0.5 MG; Start 02/10/17 at 22:00 HILLARY REYEZ MD Feb 14, 2017 13:04
[2017-02-14 14:10] VITALS: BP 117/62; RESP 16
[2017-02-14 20:20] VITALS: BP 133/88; RESP 18
[2017-02-15] MEDS: HYDROmorphONE 1 MG/ML SYG IV PRN ×2 (00:27→04:45)
[2017-02-15 02:30] VITALS: BP 133/84; RESP 17
[2017-02-15] MEDS: SOD CHLORIDE 0.9% 1,000 ML IV SCH (03:16)
[2017-02-15 07:53] VITALS: BP 122/71; RESP 17
[2017-02-15] MEDS: ENOXAPARIN 40 MG/0.4 ML SYG SC SCH (08:20)
--- NOTE | 2017-02-15 11:41 | PDOCDIS ---
Discharge Instructions CONDITION Patient Condition: Stable HOME CARE INSTRUCTIONS: Special Diet: Regular FOLLOW UP/APPOINTMENTS Follow-up Plan You need to stop drinking alcohol to stop these pancreatitis episodes from happening again. Debe dejar de beber alcohol para detener estos episodios de pancreatitis de nuevo. HILLARY REYEZ MD Feb 15, 2017 11:40
--- NOTE | 2017-02-15 11:49 | DS ---
Date/Time of Note Date/Time of Note DATE: 02/15/17 TIME: 11:41 Discharge Summary Admission/Discharge Info Admit Date/Time Feb 10, 2017 at 18:06 Discharge Date/Time Patient Condition: Good Procedures Admit data: lipase 1700 CT A/P results IMPRESSION: 1. Acute pancreatitis. No evidence of abscess or pseudocyst. gallbladder US IMPRESSION: Nonspecific heterogeneity of the pancreatic head. Finding is compatible with pancreatitis in the appropriate clinical scenario. Distal body and tail of the pancreas not well visualized. If characterization of this structure is needed repeat exam is recommended. ChemP AG, AST elevation and sig proteinuria a1c 5.7 Hx of Present Illness Turkmen language line used to facilitate communication 46 yo M with pmhx EtOH abuse previous admission for acute pancreatitis presents with 30 hours of abd pain. Denies any nausea, vomiting, fevers or chills. Typically drinks 3-4 beers daily, last drink was 2 days ago. Denies h/o EtOH withdrawal symptoms or seizures 10pROS neg as per HPI PMHx: as per HPI Home meds: none Soc Hx: non smoker, EtOH as above, lives in the community Hospital Course Pt started on IVFs. Diet advanced to general. Abd pain slowly improved. Alcohol cessation advised repeatedly during pt's stay. Transaminases normalized prior to discharge. AG resolved. Repeat UA without evidence of proteinuria. pt also with incidental finding of a1c in preDM range. Home Meds Active Scripts Hydrocodone/Acetaminophen ([place] 5-325 Tablet) 1 Each Tablet, 1 TAB PO Q6H Y for PAIN, #15 TAB Prov:PANCHO HICKMAN PA-C 05/07/16 Follow-up Plan PCP within 7 days NO MORE ETOH Primary Care Provider Tyrone Linares Time spent on discharge: > 30 minutes HILLARY REYEZ MD Feb 15, 2017 11:49
[2017-02-15] MEDS ORDERED: HYDR-906 PO (11:51)
--- NOTE | 2017-02-15 11:52 | PDOCDIS ---
Discharge Instructions CONDITION Patient Condition: Stable HOME CARE INSTRUCTIONS: Special Diet: RegularYour diet recommendation is: NO MORE ALCOHOL/No ms alcohol FOLLOW UP/APPOINTMENTS Follow-up Plan Follow up with your regular doctor within 7 days. Your blood sugar tests show you have PRE diabetes Merlin un seguimiento con rubio mdico habitual dentro de los 7 hu. Miracle pruebas de azcar en donn muestran que usted tiene diabetes PRE HILLARY REYEZ MD Feb 15, 2017 11:52
== END 2017-02-15 13:10 | disposition home or self-care (01) | DRG 440 ==
LOC: FTE 13:59 → PP2 18:06
PROVIDERS: ADMIT Internal Medicine; ATTEND Internal Medicine
DX: K85.90 Acute pancreatitis without necrosis or infection, unspecified (principal); F10.10 Alcohol abuse, uncomplicated; R80.9 Proteinuria, unspecified; R73.03 Prediabetes
CPT/HCPCS: 36415; 74176; 76705; 80048; 80053; 80061; 80076; 80306; 81001; 81003; 83036; 83690; 84155; 85025; 96361; 96374; 96375; J1170; J1650; J1885; J2270; J2405; J7030